=== PATIENT | female | born 1945 | race Caucasian/White ===

== ENCOUNTER 2022-09-21 11:40 | Emergency (ER) | payer OTHER ==
[~2022-09-21] VITALS: Ht 165.1 cm; Wt 70.3 kg
--- NOTE | 2022-09-21 11:59 | NUR ---
DR ROLLE AT BEDSIDE
--- NOTE | 2022-09-21 12:10 | NUR ---
BIB FAMILY WORSENING COUGH/CHEST CONGESTION, BODY ACHE X 1 WEEK "WHEEZING" AT NIGHT WHEN LAYING DOWN
--- NOTE | 2022-09-21 12:29 | NUR ---
COVID AND RSV SWAB TAKEN AND SENT TO LAB
--- NOTE | 2022-09-21 12:29 | NUR ---
covid, flu, and rsv swabs obtained and sent to lab
--- NOTE | 2022-09-21 13:11 | NUR ---
20g started in RAC no s/s of inflitration dressed w/ S/L
[2022-09-21 13:39] LABS: BASOPHILS % (AUTO) 0.2 % (0.0-2.0); EOSINOPHILS % (AUTO) 0.4 % (0.0-6.0); HEMATOCRIT 38 % (33-45); HEMOGLOBIN 12.1 g/dL (11.5-14.8); LYMPHOCYTES # (AUTO) 0.5 K/uL (0.8-4.8); LYMPHOCYTES % (AUTO) 7.8 % (20.0-44.0); MEAN CORPUSCULAR HGB CONC 32 g/dl (31.0-36.0); MEAN CORPUSCULAR VOLUME 104 fL (82-100); MONOCYTES # (AUTO) 0.3 K/uL (0.1-1.30); MONOCYTES % (AUTO) 4.5 % (2.0-12.0); NEUTROPHILS % (AUTO) 87.1 % (43.0-81.0); PLATELET COUNT (AUTO) 256 K/uL (150-450); RED BLOOD CELL COUNT(AUTO) 3.64 MIL/uL (4.0-5.2)
[2022-09-21 13:45] LABS: CALCIUM, SERUM 7.6 mg/dL (8.5-10.1); CARBON DIOXIDE 28 mmol/L (21-32); CHLORIDE 108 mmol/L (98-107); CREATININE 0.7 mg/dL (0.6-1.3); GLUCOSE 113 mg/dL (74-106); POTASSIUM 3.4 mmol/L (3.5-5.1); SODIUM SERUM 141 mmol/L (136-145); UREA NITROGEN, BLOOD 9 mg/dL (7-18)
[2022-09-21] MEDS ORDERED: BENZ-13 PO (16:40)
[2022-09-21] MEDS ORDERED: AZIT250T13 PO (16:40)
[2022-09-21] MEDS ORDERED: AMOX-430 PO (16:40)
[2022-09-21] MEDS ORDERED: IBUP-1955 PO (16:40)
[2022-09-21 16:51] VITALS: BP 132/74
--- NOTE | 2022-09-21 16:51 | NUR ---
Patient discharged to home in stable condition. Written and verbal after care instructions given. Patient verbalizes understanding of instruction.IV removed. Catheter intact and site benign. Pressure and 4x4 applied to site. No bleeding noted.
== END 2022-09-21 16:51 | disposition home or self-care (01) ==
LOC: ER 11:49
DX: J18.9 Pneumonia, unspecified organism (principal); J06.9 Acute upper respiratory infection, unspecified; E87.6 Hypokalemia; Z20.822 Contact with and (suspected) exposure to COVID-19; M81.0 Age-related osteoporosis without current pathological fracture; M79.7 Fibromyalgia
CPT/HCPCS: 99285; 71045; 93005 ×2; 87804; 85025; 80048; 36415; 87420; 84484 ×2; U0003; C9803